=== PATIENT | male | born 1970 | race Caucasian/White ===

== ENCOUNTER 2023-11-28 20:35 | Emergency (ER) | payer BC ==
[2023-11-28 20:44] VITALS: BP 152/94; PULSE 112; RESP 20; TEMP 98.4; BMI 31.3
[2023-11-28] MEDS: ACETAMINOPHEN 1000 MG/100 ML BAG IVPB ONE (22:11)
[2023-11-28] MEDS: SODIUM CHLORIDE 0.9% 500 ML INFUS.BAG IV ONE ×2 (22:11→23:14)
[2023-11-28] MEDS: METOCLOPRAMIDE HCL INJECTION 10 MG/2 ML VIAL IVPB ONE (22:12)
[2023-11-28 22:15] LABS: VENOUS BASE EXCESS -0.2 mmol/L (-2-2); VENOUS PCO2 42.2 mmHg (38-52); VENOUS PH 7.388 (7.310-7.410)
[2023-11-28 22:19] LABS: EOS % 0.6 % (0-4.5); HEMATOCRIT 44.8 % (35.4-49); HEMOGLOBIN 15.4 GM/dL (11.7-16.9); LYMPH % 23.6 % (8-40); MCHC 34.4 g/dl (32.0-35.9); MEAN CELL VOLUME 87.2 fl (80-96); MEAN PLT VOLUME 8.4 fl (7.5-11.1); MONO % 9.4 % (3.8-10.2); NEUT % 65.4 % (42.8-82.8); PLATELET COUNT 193 10^3/uL (134-434); RBC 5.14 M/mm3 (4.00-5.60); RDW 12.8 % (11.9-15.9); WHITE BLOOD COUNT 6.4 K/mm3 (4.0-10.0)
[2023-11-28 22:35] LABS: CHLORIDE 99 mmol/L (98-107); POTASSIUM 4.1 mmol/L (3.5-5.1)
[2023-11-28 22:38] LABS: ALBUMIN 4.2 g/dl (3.4-5.0); BLOOD UREA NITROGEN 12.8 mg/dL (7-18); CO2 27 mmol/L (21-32); MAGNESIUM 2.1 mg/dL (1.8-2.4)
[2023-11-28 22:42] LABS: BILIRUBIN,TOTAL 0.4 mg/dL (0.2-1); CREATININE 0.9 mg/dL (0.55-1.3); PHOSPHOROUS 2.1 mg/dL (2.5-4.9); SGOT/AST 27 U/L (15-37); SGPT/ALT 63 U/L (13-61); TOT PROT 7.4 g/dl (6.4-8.2)
[2023-11-28 22:44] LABS: ALK PHOS 118 U/L (45-117)
[2023-11-28 22:48] LABS: ANION GAP 11 mmol/L (4-13); GLUCOSE,RANDOM 420 mg/dL (74-106); SODIUM 137 mmol/L (136-145)
[2023-11-28] MEDS: metFORMIN HCL 500 MG TABLET (FP) PO ONE (23:14)
[2023-11-28] MEDS ORDERED: metFORMIN HCL 500 MG TABLET (FP) ONE (23:15)
[2023-11-28 23:22] LABS: PH,URINE 6.5 (5.0-8.0); URINE APPEARANCE CLEAR; URINE BILIRUBIN NEGATIVE (NEGATIVE); URINE COLOR YELLOW; URINE GLUCOSE (UA) 3+ (NEGATIVE); URINE KETONE NEGATIVE (NEGATIVE); URINE LEUK ESTERASE NEGATIVE (NEGATIVE); URINE NITRITE NEGATIVE (NEGATIVE); URINE PROTEIN NEGATIVE (NEGATIVE); URINE UROBILINOGEN 0.2 mg/dL (0.2-1.0)
== END 2023-11-29 00:57 | disposition home or self-care (01) ==
LOC: JER 20:35
PROC: 3E033NZ Introduction of Analgesics, Hypnotics, Sedatives into Peripheral Vein, Percutaneous Approach (ICD-10-PCS; principal; 2023-11-28)
PROC: 3E033GC Introduction of Other Therapeutic Substance into Peripheral Vein, Percutaneous Approach (ICD-10-PCS; 2023-11-28)
DX: R51.9 Headache, unspecified (principal); E11.9 Type 2 diabetes mellitus without complications
CPT/HCPCS: 36415; 71045-TC-FY; 80053; 81003; 82010; 82803; 82962; 83735; 84100; 84484; 85025; 87086; 93005; 93010; 99285-25; J0131

== ENCOUNTER 2025-05-17 14:04 | Emergency (ER) | payer BC ==
[2025-05-17 14:11] VITALS: TEMP 98.2; BMI 31.0
[2025-05-17 15:17] LABS: ABSOLUTE IMMATURE GRANULOCYTES 0.05 x10^3/uL (0.0-0.031); BASOPHILS # 0.05 x10^3/uL (0.01-0.08); EOSINOPHIL % 0.4 % (0.8-7.0); EOSINOPHILS # 0.03 x10^3/uL (0.04-0.54); MCHC 34.7 g/dl (32.3-36.5); MEAN CELL VOLUME 86.9 fl (79.0-92.2); MEAN PLT VOLUME 9.6 fl (9.4-12.4); MONOCYTE # 0.58 x10^3/uL (0.30-0.82); MONOCYTE % 7.1 % (5.3-12.2); RDW 11.8 % (12.2-16.1)
[2025-05-17 15:22] LABS: EPI CELLS 4 /uL (0-25.1); HYALINE CASTS 0 /uL (0-3.1); URINE APPEARANCE CLEAR; URINE BACTERIA >9,000 /uL (0-1359); URINE BILIRUBIN NEGATIVE (NEGATIVE); URINE COLOR YELLOW; URINE GLUCOSE (UA) 3+ (NEGATIVE); URINE KETONE NEGATIVE (NEGATIVE); URINE LEUK ESTERASE TRACE (NEGATIVE); URINE NITRITE POSITIVE (NEGATIVE); URINE PROTEIN NEGATIVE (NEGATIVE); URINE RBC 5 /uL (0-23.9); URINE UROBILINOGEN 0.2 mg/dL (0.2-1.0); URINE WBC 55 /uL (0-25.8)
[2025-05-17 15:38] LABS: GLUCOSE,RANDOM 127.0 mg/dL (74-106); TOT PROT 8.0 g/dl (6.4-8.2)
[2025-05-17 15:39] LABS: CO2 23.0 mmol/L (21-32)
[2025-05-17 15:41] LABS: ALK PHOS 80.0 U/L (40-150)
[2025-05-17 15:43] LABS: SGOT/AST 38.0 U/L (5-34); SGPT/ALT 57.0 U/L (0-55)
[2025-05-17 15:44] LABS: CREATININE 0.76 mg/dL (0.55-1.3)
[2025-05-17] MEDS ORDERED: CEFTRIAXONE 1 GM/50 ML BAG ONE (16:00)
[2025-05-17] MEDS: CEFTRIAXONE 1,000 MG in DEXTROSE 5%-WATER - 50 ML IVPB ONE (16:03)
[2025-05-17 16:04] LABS: HCV DIAGNOSTIC IN-HOUSE W/RFLX NON-REACTIVE (NONREACTIVE); HIV INTERPRETATION NEGATIVE (NEGATIVE)
[2025-05-17] MEDS: SODIUM CHLORIDE 0.9% 500 ML INFUS.BAG IV ONE (16:11)
[2025-05-17 17:38] VITALS: BP 134/85; PULSE 95; RESP 16
== END 2025-05-17 18:00 | disposition home or self-care (01) ==
LOC: JER 14:04
DX: N12 Tubulo-interstitial nephritis, not specified as acute or chronic (principal); R10.9 Unspecified abdominal pain
CPT/HCPCS: 36415; 74176-TC; 80053; 81003; 85025; 86803; 87086; 87389; 99285-25